=== PATIENT | male | born 1995 | race Two or more races ===

== ENCOUNTER 2020-10-13 15:39 | Emergency (ER) | payer SELFPAY ==
[~2020-10-13] VITALS: Ht 165.1 cm; Wt 86.0 kg
--- NOTE | 2020-10-13 16:22 | RAD ---
XR HUMERUS_RT 2 VIEWS History: Reason: laceration, Possible FB metal particle / Spl. Instructions: / History: Technique: 2 views right humerus Comparison: None. Findings: Normal alignment. No fracture. Linear metallic foreign body within the left anterior upper arm subcut aneous tissues measures 0.6 cm. Impression: 1. Irregular linear metallic foreign body within the anterior upper arm subcutaneous tissues. Electronically signed by: Jose Roberto Kirkland DO (10/13/2020 4:19 PM) KIM
[2020-10-13] MEDS: LIDOCAINE WITH 8.4% SOD BICARB 3 ML DISP.SYRIN. INJ ONE (17:17)
[2020-10-13] MEDS: DIPH,PERTUSS(ACELL),TET VAC/PF 0.5 ML SYRINGE. VAX IM ONE (17:19)
--- NOTE | 2020-10-13 17:32 | PHYS DOC ---
Past Medical History Past Medical History: No Pertinent History Past Surgical History: No Surgical History Smoking Status: Never Smoker Alcohol Use: None General Adult EDM: Chief Complaint: LACERATION/AVULSION HPI: HPI: Patient is a 25 year old Hebrew-speaking male who presents to the ED today to be evaluated after a piece of shanna that were scraping got into his right upper extremity and possibly right abdomen. Patient's friend is interpreting for Hebrew per patient's choice, he states they were scraping PVC shanna and a piece of the shanna flew and hit patient on the right upper extremity and abdomen. Review of Systems: Review of Systems: Constitutional: Denies fever or chills. [] Eyes: Denies change in visual acuity. [] HENT: Denies nasal congestion or sore throat. [] Respiratory: Denies cough or shortness of breath. [] Cardiovascular: Denies chest pain or edema. [] GI: Denies abdominal pain, nausea, vomiting, bloody stools or diarrhea. [] : Denies dysuria. [] Musculoskeletal: Denies back pain or joint pain. [] Integument: Post laceration to the right biceps and possible foreign object on the right abdomen Neurologic: Denies headache, focal weakness or sensory changes. [] Psychiatric: Denies depression or anxiety. [] Heart Score: C/O Chest Pain: N/A Risk Factors: Risk Factors: DM, Current or recent (<one month) smoker, HTN, HLP, family history of CAD, obesity. Risk Scores: Score 0 - 3: 2.5% MACE over next 6 weeks - Discharge Home Score 4 - 6: 20.3% MACE over next 6 weeks - Admit for Clinical Observation Score 7 - 10: 72.7% MACE over next 6 weeks - Early Invasive Strategies Current Medications: Current Medications Medications (Trade) Dose Ordered Sig/Charanjit Start Time Stop Time Status Last Admin Dose Admin Diphtheria/ Tetanus/Acell Pertussis (ADACEL TDap SYRINGE) 0.5 ml ONCE ONCE 10/13/20 16:45 10/13/20 16:46 DC 10/13/20 17:19 0.5 ML Lidocaine HCl (Buffered Lidocaine 1%) 3 ml 1X ONCE 10/13/20 16:45 10/13/20 16:46 DC 10/13/20 17:17 3 ML Allergies: Allergies: Allergies Coded Allergies Type Severity Reaction Last Updated Verified No Known Drug Allergies 5/27/21 No Physical Exam: PE: Constitutional: Well developed, well nourished, no acute distress, non-toxic appearance. [] HENT: Normocephalic, atraumatic, bilateral external ears normal, oropharynx moist, no oral exudates, nose normal. [] Eyes: PERRLA, EOMI, conjunctiva normal, no discharge. [] Neck: Normal range of motion, no tenderness, supple, no stridor. [] Cardiovascular:Heart rate regular rhythm, no murmur [] Lungs & Thorax: Bilateral breath sounds clear to auscultation [] Abdomen: Bowel sounds normal, soft, no tenderness, no masses, no pulsatile masses. [] Skin: Right bicep to the laceration roughly 1 cm long with possible foreign object. No tendon involvement. Full range of motion to the right upper ex tremity including flexion and extension of the elbow. Adequate radial, medial, ulnar sensation to the right hand. Cap refill less than 2 seconds of right fingers. Right lower lateral abdomen has 2 areas of bruising each roughly 1 cm long. Patient refused abdominal x-rays Back: No tenderness, no CVA tenderness. [] Extremities: No tenderness, no cyanosis, no clubbing, ROM intact, no edema. [] Neurologic: Alert and oriented X 3, normal motor function, normal sensory function, no focal deficits noted. [] Psychologic: Affect normal, judgement normal, mood normal. [] Current Patient Data: Vital Signs: Vital Signs Date Time Temp Pulse Resp B/P (MAP) Pulse Ox O2 Delivery O2 Flow Rate FiO2 10/13/20 15:45 98.8 94 16 170/82 (111) 97 Room Air 98.8 EKG: EKG: [] Radiology/Procedures: Radiology/Procedures: []PROCEDURE: HUMERUS RIGHT XR HUMERUS_RT 2 VIEWS History: Reason: laceration, Possible FB metal particle / Spl. Instructions: / History: Technique: 2 views right humerus Comparison: None. Findings: Normal alignment. No fracture. Linear metallic foreign body within the left anterior upper arm subcutaneous tissues measures 0.6 cm. Impression: 1. Irregular linear metallic foreign body within the anterior upper arm subcutaneous tissues. Electronically signed by: Jose Roberto Heller DO (10/13/2020 4:19 PM) [facility] DICTATED and SIGNED BY: JOSE ROBERTO HELLER DO DATE: 10/13/20 [id number] Laceration/Wound Repair Laceration/Wound Repair : [] Wound Location: Right biceps Wound's Depth, Shape: Vertical Wound Length (cm): Approximately 1 cm Wound Explored: Foreign object noted on x-ray but not found physically Irrigated w/ Saline (ccs): 500 Betadine Prep?: Yes Anesthesia: 3 mL of 1% buffered lidocaine Wound Repaired With: Ethilon Suture Size/Type: 4.0/3 interrupted sutures Progress : Wound was covered with nonstick dressing Course & Med Decision Making: Course & Med Decision Making Pertinent Labs and Imaging studies reviewed. (See chart for details) This is a 35-year-old male patient presented to the ED today to be evaluated for possible foreign object of the right upper extremity and right lateral abdomen. Patient was walking with a friend scraping PVC shanna when a piece of the shanna flew into his right upper extremity and hit his abdomen. X-ray of the right humerus was noted for foreign object, I tried exploring the right biceps with this object with no success. Informed patient this object to make its way out at some point. Laceration was closed, tetanus updated. Wound care instructions and return precautions provided, cephalexin Rx provided. Patient refused abdominal x-ray, he has some bruising there and possibility of another foreign object Dragon Disclaimer: Ramon Disclaimer: This electronic medical record was generated, in whole or in part, using a voice recognition dictation system. Departure Departure Impression: Primary Impression: Laceration of right biceps brachii muscle Additional Impressions: Other foreign body or object entering through skin, initial encounter Superficial bruising of abdominal wall Qualified Codes: S30.1XXA - Contusion of abdominal wall, initial encounter Disposition: HOME / SELF CARE / HOMELESS Condition: STABLE Patient Instructions: Foreign Body, Laceration Care, Adult Additional Instructions: You were evaluated in the emergency room for laceration on the right upper extremity, you are noted to have a foreign object on the right biceps which we were not able to locate. We highly advise you to keep the area clean and dry. You can shower with the stitches open starting tomorrow do not soak the area. You can keep the area open to air after 24 hours. Apply Neosporin to the area twice a day for 7 days. Take the prescribed antibiotic until completed. Monitor the area for any signs of infection including but not limited to increased redness, warmth, yellow drainage from the area and return to the ED if they occur. The foreign object in your right bicep will make its way out at some point. Please follow-up with the emergency room in 7 days for stitches to be removed from your right upper extremity Scripts Cephalexin (CEPHALEXIN) 500 Mg Tablet 1 TAB PO TID, #30 TAB Prov: JACK PALMA APRN 10/13/20 JACK PALMA APRN October 13, 2020 17:32
[2020-10-13 18:19] VITALS: BP 150/82
[2020-10-13] MEDS ORDERED: CEPH500T PO (18:41)
== END 2020-10-13 18:51 | disposition home or self-care (01) ==
LOC: ER 15:39
DX: S46.221A Laceration of muscle, fascia and tendon of other parts of biceps, right arm, initial encounter (principal); S30.1XXA Contusion of abdominal wall, initial encounter; W45.8XXA Other foreign body or object entering through skin, initial encounter; Y93.89 Activity, other specified; Y92.89 Other specified places as the place of occurrence of the external cause; Y99.8 Other external cause status
CPT/HCPCS: 12001; 73060; 90471; 90715; 99285; J3490